=== PATIENT | female | born 1965 | race Caucasian/White ===

== ENCOUNTER → 2021-04-06 | Outpatient (CLI) | payer BC | LOC: DTC 14:23 | DX: E11.9 Type 2 diabetes mellitus without complications (principal); E66.01 Morbid (severe) obesity due to excess calories | CPT/HCPCS: G0108 ==

== ENCOUNTER → 2021-04-06 | Outpatient (CLI) | payer BC | LOC: LBRF 10:44 | DX: D64.9 Anemia, unspecified (principal) | CPT/HCPCS: 82728; 83540; 83550 ==

== ENCOUNTER 2021-10-24 08:15 | Emergency (ER) | payer OTHER ==
[2021-10-24 09:29] LABS: HEMOGLOBIN 11.4 gm/dl (12.3-15.3); RED BLOOD COUNT 4.4 M/UL (4.00-5.10); WHITE BLOOD COUNT 9.1 K/UL (4.5-11.0)
[2021-10-24 09:49] LABS: BUN/CREATININE RATIO 28 (0-10)
[2021-10-24] MEDS ORDERED: IBUPROFEN600 MG PO (13:24)
== END 2021-10-24 13:40 | disposition home or self-care (01) ==
LOC: ER1 08:15
PROVIDERS: Physician Assistant Medical
DX: S52.121A Displaced fracture of head of right radius, initial encounter for closed fracture (principal); S52.131A Displaced fracture of neck of right radius, initial encounter for closed fracture; E11.9 Type 2 diabetes mellitus without complications; I10 Essential (primary) hypertension; Z79.82 Long term (current) use of aspirin; W19.XXXA Unspecified fall, initial encounter; Y92.410 Unspecified street and highway as the place of occurrence of the external cause; Y93.01 Activity, walking, marching and hiking
CPT/HCPCS: 29105; 70450; 71045; 73080; 73090; 80053; 82550; 82553; 84484; 85025; 96374; 99284; J1885

== ENCOUNTER 2021-12-27 15:15 | Emergency (ER) | payer OTHER ==
[~2021-12-27 15:15] MED LIST: IBUPROFEN600 MG PO
== END 2021-12-27 19:58 | disposition home or self-care (01) ==
LOC: ER1 15:15
DX: S52.121A Displaced fracture of head of right radius, initial encounter for closed fracture (principal); S80.01XA Contusion of right knee, initial encounter; I10 Essential (primary) hypertension; E11.9 Type 2 diabetes mellitus without complications; E03.9 Hypothyroidism, unspecified; W18.30XA Fall on same level, unspecified, initial encounter
CPT/HCPCS: 29125; 73080; 73564; 99283